=== PATIENT | female | born 1985 | race Caucasian/White ===

== ENCOUNTER 2017-01-17 08:18 | Inpatient (IN) | payer OTHER ==
[~2017-01-17] VITALS: Ht 157.5 cm; Wt 82.5 kg
[2017-01-17] VITALS (13 sets, daily range): BP systolic 124–141; BP diastolic 77–93; PULSE 70–92; RESP 15–21; Ht 157.5 cm; Wt 82.5 kg
[2017-01-17] MEDS ORDERED: NACL 0.9% 3 ML SYG IV SCH (11:00)
[2017-01-17] MEDS ORDERED: ONDANSETRON 4 MG INJ IV PRN ×3 (11:00→19:30)
[2017-01-17] MEDS: SOD CHLORIDE 0.9% 1,000 ML IV SCH ×2 (11:35→23:46)
--- NOTE | 2017-01-17 11:51 | HP ---
Date/Time of Note Date/Time of Note DATE: 01/17/17 TIME: 11:51 Assessment/Plan VTE Prophylaxis VTE Prophylaxis Intervention: SCD's Lines/Catheters IV C[facility]ter Type (from [facility]): Peripheral IV Assessment/Plan Chief Complaint/Hosp Course This a 31-year-old female with no significant past medical history who presented to outside hospital for evaluation of right-sided abdominal pain. 1. Acute cholelithiasis/cholecystitis. -Admit to medical surgical floor. Surgery consult with Dr. Luo. -Keep patient n.p.o., IV fluids, broad-spectrum IV antibiotics, antiemetics and pain medications. 2. Leukocytosis likely secondary to #1. Treatment as per above. Will also obtain cultures. 3. Obesity. -Weight reduction advised Plan: Patient will be kept n.p.o. We will consult surgery and will follow recommendations. Rest of the management depend on clinical course,further studies and input from neuropsychology medical consultant. Approximately 60 minutes was spent on this history and physical. Plan of care discussed with patient and her . Case discussed with Problems: HPI/ROS Admit Date/Time Admit Date/Time Jan 17, 2017 at 09:25 Hx of Present Illness This is a 31-year-old female with no significant past medical history, who initially presented to [facility] for evaluation of right sided abdominal pain which started last night after patient had some spicy meal. She did not have fever, chills, nausea,or vomiting. Patient had similar pain in the past and she did not seek any medical attention at that time. Upon presentation to the outside hospital, her initial labs showed elevated WBC 17, 200, hemoglobin 11.7, hematocrit 35.4 and platelet 415. Her blood pressure also was slightly elevated 169/109. BMP within acceptable range. AST ALT within acceptable range. Ultrasound abdomen revealed cholelithiasis with cholecystitis. Patient was treated with Zosyn, morphine sulfate 4 mg and normal saline in the outside hospital and was transferred to [facility] due to insurance reason. Patient denied any fever, chills, nausea, vomiting, upper or lower GI bleed episodes. Patient also denied chest pain, palpitation, shortness of breath, loss of consciousness or other constitutional symptoms. Patient denied any recent travel or contact with sick people. ROS 12 point review of system was assessed and is negative other than what is mentioned in HPI. PMH/Family/Social Past Medical History See HPI Past Surgical History None Social History Denies history of alcohol, smoking or illicit drug use. Smoking Status: Never smoker Exam/Review of Systems Vital Signs Vitals Vital Signs Date Time Temp Pulse Resp B/P Pulse Ox O2 Delivery O2 Flow Rate FiO2 01/17/17 10:14 98.1 70 18 141/93 99 Room Air Exam Exam General: Obese female, not in acute distress HEENT: Normocephalic, Atraumatic, No laceration or hematoma; Eyes: PEERL, Conjunctiva clear, Anicteric sclera Neck: Supple without any lymphadenopathy, nontender, no JVD, no carotid bruits, trachea midline, no thyromegaly Cardiac: S1, S2 auscultated, regular rhythm and rate, no mumurs or gallop Pulmonary: Normal respiratory effort. Chest clear to auscultation bilaterally, no adventitious breath sounds GI: Mild tenderness to right upper quadrant. Otherwise abdomen normal to inspection. Soft, non- distended, no masses, no rebound tenderness or guarding. Bowel sounds active on all four quadrants Genitourinary: Deferred Extremities: No cyanosis, clubbing, or edema. Pulses [2+] bilaterally. Full ROM on all four extremities. No focal weakness appreciated. Neurologic: Alert to person, place, time, and situation. Affect appropriate, intact sensation. Skin: Clean,dry, and intact. No ecchymosis, no rashes, or lesions Medications Medications Current Medications Sodium Chloride (NS) 1,000 ml @ 80 mls/hr [id number] IV Last administered on t 11:35; Admin Dose 80 MLS/HR; Start 01/17/17 at 10:56 Ondansetron HCl (Zofran Inj) 4 mg Q6H PRN IV NAUSEA AND/OR VOMITING; Start 01/17 at 11:00 Morphine Sulfate (morphine) 2 mg Q4H PRN IV SEVERE PAIN LEVEL 7-10; Start at 11:00 Famotidine 20 mg 20 mg Q12 IV ; Start 01/17/17 at 21:00 Piperacillin Sod/ Tazobactam Sod (Zosyn 3.375gm/ 100 ml (Pmx)) 100 ml @ 200 mls /hr Q8 IVPB ; Start 01/17/17 at 14:00 DIXON BLAND NP Jan 17, 2017 11:51
[2017-01-17 11:58] LABS: BASOPHIL # 0.1 10^3/ul (0.0-0.1); BASOPHILS % 0.3 % (0.0-2.0); EOSINOPHILS # 0.1 10^3/ul (0.0-0.5); EOSINOPHILS % 0.3 % (0.0-7.0); HEMOGLOBIN 11.3 g/dl (12.0-16.0); LYMPHOCYTES # 3.3 10^3/ul (0.8-2.9); LYMPHOCYTES % 14.7 % (15.0-51.0); MEAN CORPUSCULAR HEMOGLOBIN 30.9 pg (29.0-33.0); MEAN CORPUSCULAR HGB CONC 33.2 g/dl (32.0-37.0); MEAN CORPUSCULAR VOLUME 92.9 fl (82.0-101.0); MEAN PLATELET VOLUME 9.7 fl (7.4-10.4); MONOCYTE # 1.3 10^3/ul (0.3-0.9); MONOCYTES % 5.9 % (0.0-11.0); PLATELET COUNT 382 10^3/UL (140-415); RED BLOOD COUNT 3.66 10^6/ul (4.20-5.40); RED CELL DISTRIBUTION WIDTH 13.8 % (11.5-14.5); WHITE BLOOD COUNT 22.6 10^3/ul (4.8-10.8)
[2017-01-17 12:09] LABS: INR 0.98
[2017-01-17 12:20] LABS: ALBUMIN 3.8 g/dl (3.3-4.9); ALBUMIN/GLOBULIN RATIO 1.22; CALCIUM 8.6 mg/dl (8.4-10.2); CREATININE 0.68 mg/dl (0.44-1.00); MAGNESIUM 1.9 mg/dl (1.7-2.5); POTASSIUM 4.8 mmol/L (3.5-5.1); TOTAL PROTEIN 6.9 g/dl (6.1-8.1)
[2017-01-17 13:24] LABS: BILIRUBIN,INDIRECT 0.1 mg/dl (0-1.1); BILIRUBIN,TOTAL 0.1 mg/dl (0.2-1.3)
[2017-01-17] MEDS ORDERED: PIPER-TAZO 3.375 GM IV (PMX) 100 ML IVPB SCH (14:00)
[2017-01-17] MEDS ORDERED: BUPIVACAINE 0.5%/EPI (SDV) 10 ML INJ ONE ×2 (17:49→22:13)
[2017-01-17] MEDS: D5-NS + KCL 20 MEQ 1,000 ML IV SCH (17:49)
[2017-01-17] MEDS ORDERED: LIDOCAINE 1% (STERILE-PAK) 30 ML INJ ONE ×2 (17:49→22:13)
[2017-01-17] MEDS ORDERED: MIDAZOLAM 1 MG/ML 2 ML INJ ONE (17:56)
[2017-01-17] MEDS ORDERED: ACETAMINOPHEN 325 MG TAB PO PRN (18:00)
[2017-01-17] MEDS ORDERED: HYDROCODONE/APAP (5/325) TAB PO PRN (18:00)
[2017-01-17] MEDS ORDERED: IBUPROFEN 600 MG TAB PO PRN (18:00)
[2017-01-17] MEDS ORDERED: morphine 2 MG INJ IV PRN (18:00)
[2017-01-17] MEDS: PIPER-TAZO 3.375 GM IV (PMX) 100 ML IVPB SCH ×2 (18:00→23:46)
[2017-01-17] MEDS ORDERED: LIDOCAINE 2% (SDV) 5 ML INJ ONE (19:00)
[2017-01-17] MEDS ORDERED: ROCURONIUM 50 MG INJ ONE (19:00)
[2017-01-17] MEDS ORDERED: PROPOFOL 20 ML ONE (19:00)
[2017-01-17] MEDS ORDERED: NEOSTIGMINE 3 MG/3 ML SYRINGE ONE (19:02)
[2017-01-17] MEDS ORDERED: CEFAZOLIN 1 GM INJ ONE (19:03)
[2017-01-17] MEDS ORDERED: GLYCOPYRROLATE 1 MG INJ ONE (19:03)
[2017-01-17] MEDS ORDERED: ONDANSETRON 4 MG INJ ONE (19:08)
--- NOTE | 2017-01-17 19:28 | SIPON ---
Date/Time of Note Date/Time of Note DATE: 01/17/17 TIME: 19:27 Operative Report Preoperative Diagnosis Acute cholecystitis Postoperative Diagnosis Same Operation/Procedure Performed Lap oskar Surgeon: HENRY MCGUIRE MD commercial loan assistant: JASON BARRAGAN MD Anesthesia Type: general Estimated Blood Loss: minimal Transfusion Required: no Specimens Gallbladder Complications: no HENRY MCGUIRE MD Jan 17, 2017 19:28
[2017-01-17] MEDS ORDERED: FENTAnyl 50 MCG/ML VIAL IV PRN (19:30)
[2017-01-17] MEDS ORDERED: MEPERIDINE 25 MG INJ IV PRN (19:30)
[2017-01-17] MEDS ORDERED: DIPHENHYDRAMINE 50 MG INJ IV PRN (19:30)
[2017-01-17] MEDS ORDERED: morphine (1 MG/ML) 10ML SYRINGE IV PRN (19:30)
--- NOTE | 2017-01-17 19:45 | PREOPHP ---
DATE OF ADMISSION: 01/17/2017 HISTORY OF PRESENT ILLNESS: Ms. Lizarraga is a 31-year-old female who developed acute onset of right upper quadrant pain yesterday. She denies fevers, chills, nausea, vomiting. She has had prior episodes in the past, but they usually went away on their own. This time the pain was more consistent and worse in nature. Her workup in the ER at [place] is consistent with acute cholecystitis, and she was transferred to [facility]. PAST MEDICAL HISTORY: Noncontributory. PAST SURGICAL HISTORY: None. MEDICATIONS: None. ALLERGIES: NO KNOWN DRUG ALLERGIES. SOCIAL HISTORY: She denies drinking, drug use or smoking. REVIEW OF SYSTEMS: A 14-point review of systems was performed. Pertinent negatives per HPI. PHYSICAL EXAMINATION: GENERAL: She is a well-nourished, well-developed female, in no apparent distress. VITAL SIGNS: She is afebrile, vital signs stable. HEENT: Head is normocephalic, atraumatic. Eyes: Her extraocular muscles are intact. NECK: Supple. CHEST: Clear to auscultation bilaterally. HEART: Regular rhythm. ABDOMEN: Soft. Mild right upper quadrant tenderness. NEURO: She is grossly intact. EXTREMITIES: No clubbing, cyanosis, or edema. PSYCHIATRIC: She is alert. She has normal affect. LABORATORY: Her CBC reveals a white count of 17, hematocrit of 35, platelets of 415. Ultrasound was consistent with cholelithiasis and acute cholecystitis. IMPRESSION AND PLAN: Ms. Lizarraga is a 31-year-old female with acute cholecystitis. I discussed proceeding with surgery on this admission. Patient wished to proceed. We discussed laparoscopic, possible open cholecystectomy, possible cholangiogram. All benefits, risks, alternatives discussed in detail. Questions answered. Patient elected to proceed. Dictated By: Tani Luo MD /[email or web address] /Document#: [id number]
[2017-01-17] MEDS: FAMOTIDINE 20 MG INJ IV SCH (20:46)
--- NOTE | 2017-01-17 20:59 | OPR ---
DATE OF OPERATION: 01/17/2017 PREOPERATIVE DIAGNOSIS: Acute cholecystitis. POSTOPERATIVE DIAGNOSIS: Acute cholecystitis. PROCEDURE: Laparoscopic cholecystectomy. SURGEON: Tani Luo MD MARINE FIREMAN: None. ANESTHESIA: General endotracheal. ANESTHESIOLOGIST: Vincent Hidalgo MD ESTIMATED BLOOD LOSS: Minimal. COMPLICATIONS: None. SPECIMEN: Gallbladder. FINDINGS: Gallbladder filled with stones, edematous gallbladder. INDICATIONS: Ms. Lizarraga is a 31-year-old female with recurrent biliary colic who had an episode of severe right upper quadrant pain with nausea and fevers. She presented to ER where her workup was consistent with acute cholecystitis. She was transferred to [facility] for her surgery and then I was called for consultation. I discussed proceeding with a laparoscopic, possible open cholecystectomy, possible cholangiogram. All benefits, risks, alternatives were discussed in detail. Questions answered. Patient wanted to proceed. OPERATION PERFORMED: The patient was brought to the operating room and placed supine on the table. Antibiotics and SCDs were placed. The patient was intubated and the abdomen prepped and draped in a sterile fashion. All incisions were infiltrated with 1 percent Xylocaine with epinephrine and 0.5 percent Marcaine prior to incision. An 11 mm incision was made in the umbilicus. Using a 5 mm scope and a trocar, the abdomen was entered under direct vision and insufflated with 15 mmHg CO2. The following trocar was then placed under vision, a subxiphoid 5 mm, a 5 mm trocar in the right upper quadrant, and a 5 mm trocar in the right lower quadrant. The 5 mm umbilical trocar was exchanged for the laparoscope under direct vision. The gallbladder was identified. It had been thickened. An aspirating needle was placed in the gallbladder disease and aspirated approximately 60 mL of viscous bile. I could then grasp the gallbladder at its fundus and retracted it over the liver. Gunner's pouch was identified, grasped and retracted laterally. The peritoneum was then scored medially and laterally and I was able to dissect out and skeletonize the cystic duct and artery. I then dissected the gallbladder off the cystic plate of the liver, had my critical view of safety or semi duct artery with no intervening structures. The duct and artery were both clipped twice proximally, once distally, individually divided. The gallbladder was then removed from the gallbladder fossa, placed into an endocatch bag, and removed through the 12 mm trocar site. I irrigated out the right upper quadrant, the last one was clear. I visualized my gallbladder fossa. There was some slight oozing which was controlled with Surgicel and pressure. I removed the gauze and the gallbladder fossa was hemostatic. I closed the fascia of the 12 mm trocar site with 0 Vicryl, I used an endoclose device under direct vision. At this point, the abdomen was fully desufflated and all trocars were removed. Skin incisions were closed with 4-0 Monocryl, Mastisol, and Steri- Strips. A 2 x 2 gauze and Tegaderm was placed over the umbilical incision only. The patient tolerated the procedure well, was extubated in the OR, and transferred to the recovery room in stable condition. Dictated By: Tani Luo MD /[email or web address]/[email or web address] /Document#: [id number]
[2017-01-17] MEDS: morphine 2 MG INJ IV PRN (21:12)
[2017-01-18 02:50] VITALS: BP 124/67; RESP 18
[2017-01-18] MEDS: D5-NS + KCL 20 MEQ 1,000 ML IV SCH (03:49)
[2017-01-18] MEDS: morphine 2 MG INJ IV PRN (04:17)
[2017-01-18] MEDS: PIPER-TAZO 3.375 GM IV (PMX) 100 ML IVPB SCH ×2 (06:22→11:21)
[2017-01-18 06:56] LABS: BASOPHIL # 0.1 10^3/ul (0.0-0.1); BASOPHILS % 0.3 % (0.0-2.0); EOSINOPHILS # 0.2 10^3/ul (0.0-0.5); EOSINOPHILS % 0.9 % (0.0-7.0); HEMATOCRIT 31.4 % (37.0-47.0); HEMOGLOBIN 10.4 g/dl (12.0-16.0); LYMPHOCYTES % 11.9 % (15.0-51.0); MEAN CORPUSCULAR HEMOGLOBIN 30.5 pg (29.0-33.0); MEAN CORPUSCULAR HGB CONC 33.1 g/dl (32.0-37.0); MEAN CORPUSCULAR VOLUME 92.1 fl (82.0-101.0); MEAN PLATELET VOLUME 9.9 fl (7.4-10.4); MONOCYTE # 1.1 10^3/ul (0.3-0.9); MONOCYTES % 6.3 % (0.0-11.0); PLATELET COUNT 359 10^3/UL (140-415); RED BLOOD COUNT 3.41 10^6/ul (4.20-5.40)
[2017-01-18] MEDS ORDERED: ENOXAPARIN 40 MG/0.4 ML SYG SC SCH (07:00)
[2017-01-18 07:30] LABS: ALBUMIN 3.5 g/dl (3.3-4.9); ALBUMIN/GLOBULIN RATIO 1.16; BILIRUBIN,INDIRECT 0.6 mg/dl (0-1.1); BILIRUBIN,TOTAL 0.6 mg/dl (0.2-1.3); CALCIUM 8.1 mg/dl (8.4-10.2); CHOL/HDL RATIO 2.6 RATIO; CREATININE 0.72 mg/dl (0.44-1.00); MAGNESIUM 1.9 mg/dl (1.7-2.5); PHOSPHORUS 2.7 mg/dl (2.5-4.9); TOTAL PROTEIN 6.5 g/dl (6.1-8.1)
[2017-01-18 07:56] LABS: THYROID STIMULATING HORMONE 1.41 MIU/L (0.465-4.680)
[2017-01-18] MEDS: FAMOTIDINE 20 MG INJ IV SCH (08:46)
[2017-01-18 09:01] VITALS: BP 127/86; RESP 20
--- NOTE | 2017-01-18 11:47 | PDOCDIS ---
Discharge Instructions CONDITION Patient Condition: Stable HOME CARE INSTRUCTIONS: Diet Instructions: Regular FOLLOW UP/APPOINTMENTS Follow-up Plan 1.Follow-up with in 1week [address] [facility] [address] [place] [address] Office 2.Follow up with primary care physician in 1 week If you don't have one please let someone know, we can give you resources that may help you pick one. You may also call your insurance company to assign one to you. Review your medication list with your nurse before leaving and if you need new prescriptions please let your nurse know. I may have made changes to your home medications or given you new prescriptions, please let your primary doctor know as well. Stay compliant with your medications and report any side effects to your PCP or pharmacist. Return to the ER if you have any concerns and cannot reach your doctors or call your insurance company, they usually have a nurse that can help you. 3. Call 911 or go to the nearest emergency room if experiencing loss of consciousness, dizziness, chest pain, shortness of breath, vomiting/abdominal pain, speech difficulties, motor weakness or any unusual symptoms. OTHER ORDERS: Other Orders: Post operative Instructions *Do not lift anything more than 25 pounds for 6 to 8 weeks *Do not swim or take hot tub bath for 2weeks *Remove dressing and May shower-Use mild soap around site and pat dry *If you notice any oozing, bleeding or other drainage or having fever or chills from site please contact Surgeon's office-If unable to get office, you may go to nearest emergency room DIXON BLAND NP Jan 18, 2017 11:47
[2017-01-18] MEDS ORDERED: HYDR-3498 PO (11:48)
[2017-01-18] MEDS ORDERED: CEPH-443 PO (11:48)
--- NOTE | 2017-01-18 16:56 | DS ---
DATE OF ADMISSION: 01/17/2017 DATE OF DISCHARGE: 01/18/2017 CONSULTANTS: Tani Luo MD, surgery. FINAL DIAGNOSES: Acute cholelithiasis/cholecystitis. Status post laparoscopic cholecystectomy on 01/17/2017. HOSPITAL COURSE: This is a 31-year-old obese female with no significant past medical history who initially presented to outside hospital for evaluation of right-sided abdominal pain which started the night before admission. Patient did not have any fever, chills, nausea or vomiting. Apparently, patient had similar pain in the past for which she never sought any medical attention. Patient had initially elevated WBCs 17,200. Outside hospital ultrasound revealed acute cholelithiasis/cholecystitis. Patient was transferred to [facility] for insurance reason. Her LFTs were normal. Surgery consultation was called and patient was admitted to inpatient medical/surgical floor. Patient was kept npo. She was started on IV fluids, pain control, antiemetics, and broad-spectrum IV antibiotics. Patient did not have any fever. She continued to have leukocytosis with WBC of 22,600. On 01/17/2017, patient was taken to operating room and she had undergone laparoscopic cholecystectomy by Dr. Luo. Patient tolerated the procedure well. She had a stable postoperative course. There was no fever. WBC also started to trend down. Patient was started on a diet which she was able to tolerate. At this time, there is no further inpatient workup needed. Patient is medically stable for discharge. DISPOSITION: Patient will be discharged home today. FOLLOWUP: She was instructed to follow up with Dr. Luo in 1 week. DISCHARGE INSTRUCTIONS: Patient was also instructed not to lift anything more than 25 pounds for 6-8 weeks. She was also instructed not to swim or take hot tub baths for 2 weeks. Patient was also instructed to call surgeon's office if she noticed any oozing, bleeding or other drainage or having fever or chills. Patient verbalized discharged instructions. DISCHARGE MEDICATIONS: 1. Keflex 500 mg p.o. q.6, number 28. 2. Mead 5/325 mg p.o. 1 tab q.6 p.r.n. for pain. 3. Colace 100 mg p.o. b.i.d. PERTINENT LABORATORY AND DIAGNOSTIC DATA AND VITAL SIGNS: Temperature 98.8, pulse rate 95, respiratory rate 20, blood pressure 127/86, oxygen saturation 98 percent on room air. 01/18/2017, CBC: WBC 17,000; hemoglobin 10.4, hematocrit 31.4, platelet 359. 01/18/2017, BMP: Sodium 137, potassium 4, BUN 7, creatinine 0.72, glucose 94. At this time, I would like to thank Dr. Luo for seeing the patient, providing recommendation and performing appropriate procedures on this patient. Approximately 60 minutes was spent on coordinating the discharge on this patient. Patient was seen in collaboration with Dr. Pyle. Dictated By: Josey Rosales NP /tye/luis enrique /Document#: [id number] BR[facility]KS
== END 2017-01-18 13:01 | disposition home or self-care (01) | DRG 419 ==
LOC: PP2 09:25
PROVIDERS: ADMIT Family Medicine; ATTEND Family Medicine
PROC: 0FT44ZZ Resection of Gallbladder, Percutaneous Endoscopic Approach (ICD-10-PCS; principal; 2017-01-17 17:30)
DX: K80.42 Calculus of bile duct with acute cholecystitis without obstruction (principal); E66.01 Morbid (severe) obesity due to excess calories; Z68.33 Body mass index [BMI] 33.0-33.9, adult; D72.829 Elevated white blood cell count, unspecified
CPT/HCPCS: 80053; 80061; 83036; 83735; 84100; 84443; 85025; 85610; 87040; 87086; 88304; J0690; J1650; J2250; J2270; J2405; J2543; J2710; J3010; J3480; J7030